=== PATIENT | female | born 1985 | race Caucasian/White ===

== ENCOUNTER 2018-11-25 16:07 | Emergency (ER) | payer MEDICAID ==
--- NOTE | 2018-11-25 16:35 | EDM.PDOC ---
ED HPI GENERAL MEDICAL PROBLEM - General Chief Complaint: Behavioral/Psych Stated Complaint: MEDICAL CLEARING Time Seen by Provider: 11/25/18 16:20 Source of Information: Reports: Patient History Limitations: Reports: No Limitations - History of Present Illness INITIAL COMMENTS - FREE TEXT/NARRATIVE: Tali comes to [facility] ED for medical clearance to enter [facility] for behavioral managment. She has had recent issues with depression, mood swings, anxiety, restlessness, insomnia, and goal directed behavior. There is a PMH of anxiety disorder and probable bpad. She is on mood stablilzer, but medication compliance is unknown. She denies suicidal or homicidal ideation. - Related Data Allergies Allergy/AdvReac Type Severity Reaction Status Date / Time No Known Allergies Allergy Verified 02/07/16 20:27 Home Meds: Home Meds Meclizine HCl 25 mg PO DAILY 02/07/16 [History] Past Medical History - Past Health History Medical/Surgical History: Denies Medical/Surgical History Musculoskeletal History: Reports: Other (See Below) Other Musculoskeletal History: recent ankle injury Neurological History: Reports: Migraines, Vertigo - Past Surgical History HEENT Surgical History: Reports: Oral Surgery, Tonsillectomy Social & Family History - Caffeine Use Caffeine Use: Reports: Coffee, Soda ED ROS GENERAL - Review of Systems Review Of Systems: See Below Constitutional: Reports: Malaise, Decreased Appetite HEENT: Reports: No Symptoms Respiratory: Reports: No Symptoms Cardiovascular: Reports: No Symptoms Endocrine: Reports: No Symptoms GI/Abdominal: Reports: No Symptoms : Reports: No Symptoms Musculoskeletal: Reports: Back Pain Skin: Reports: No Symptoms Neurological: Reports: No Symptoms Psychiatric: Reports: Agitation, Anxiety, Depression, Mood Lability Hematologic/Lymphatic: Reports: No Symptoms Immunologic: Reports: No Symptoms ED EXAM, GENERAL - Physical Exam Exam: See Below Exam Limited By: No Limitations General Appearance: Alert, WD/WN, No Apparent Distress, Obese Eye Exam: Bilateral Eye: EOMI, Normal Inspection, PERRL Ears: Normal External Exam Nose: Normal Inspection Throat/Mouth: Normal Inspection, Normal Oropharynx, Normal Voice Head: Normocephalic Neck: Normal Inspection, Supple Respiratory/Chest: Lungs Clear, Normal Breath Sounds, Chest Non-Tender Cardiovascular: Normal Peripheral Pulses, Regular Rate, Rhythm, No Murmur GI/Abdominal: Normal Bowel Sounds, Soft, Non-Tender, No Organomegaly, No Distention, No Mass (Female) Exam: Deferred Rectal (Female) Exam: Deferred Back Exam: Normal Inspection, Paraspinal Tenderness Extremities: Normal Inspection Neurological: Alert, Oriented, CN II-XII Intact, Normal Cognition, Normal Gait, No Motor/Sensory Deficits Psychiatric: Depressed Mood Skin Exam: Warm, Dry, Intact, Normal Color, Other (acne) Lymphatic: No Adenopathy Course - Vital Signs Text/Narrative:: Following assessment, screening labwork was obtained, and all are baseline. She is medically cleared for treatment. - Orders/Labs/Meds Labs: Laboratory Tests 11/25/18 11/25/18 11/25/18 Range/Units 16:35 16:35 16:40 WBC 11.2 (4.5-12.0) X10-3/uL RBC 5.07 (3.23-5.20) x10(6)uL Hgb 14.5 (11.5-15.5) g/dL Hct 42.3 (30.0-51.3) % MCV 83.5 (80-96) fL MCH 28.5 (27.7-33.6) pg MCHC 34.2 (32.2-35.4) g/dL RDW 14.0 (11.5-15.5) % Plt Count 262 (125-369) X10(3)uL MPV 9.5 (7.4-10.4) fL Neut % (Auto) 67.0 (46-82) % Lymph % (Auto) 23.9 (13-37) % Young % (Auto) 4.6 (4-12) % Eos % (Auto) 4 (1.0-5.0) % Baso % (Auto) 1 (0-2) % Neut # (Auto) 7.5 (1.6-8.3) # Lymph # (Auto) 2.7 (0.6-5.0) # Young # (Auto) 0.5 (0.0-1.3) # Eos # (Auto) 0.4 (0.0-0.8) # Baso # (Auto) 0.1 (0.0-0.2) # TSH, Ultra Sensitive (0.36-3.74) IU/mL Urine HCG, Qual Negative (NEGATIVE) Salicylates (<2.8) mg/dL Urine Opiates Screen Negative (NEGATIVE) Ur Oxycodone Screen Negative (NEGATIVE) Ur Propoxyphene Screen Negative (NEGATIVE) Acetaminophen (<2) ug/mL Ur Barbituates Screen Negative (NEGATIVE) Ur Tricyclics Screen Positive H (NEGATIVE) Ur Phencyclidine Scrn Negative (NEGATIVE) Ur Amphetamine Screen Negative (NEGATIVE) Urine MDMA Screen Negative (NEGATIVE) U Benzodiazepines Scrn Negative (NEGATIVE) U Cocaine Metab Screen Negative (NEGATIVE) U Marijuana (THC) Screen Negative (NEGATIVE) Ethyl Alcohol (<0.03) % 11/25/18 11/25/18 Range/Units 16:40 16:40 WBC (4.5-12.0) X10-3/uL RBC (3.23-5.20) x10(6)uL Hgb (11.5-15.5) g/dL Hct (30.0-51.3) % MCV (80-96) fL MCH (27.7-33.6) pg MCHC (32.2-35.4) g/dL RDW (11.5-15.5) % Plt Count (125-369) X10(3)uL MPV (7.4-10.4) fL Neut % (Auto) (46-82) % Lymph % (Auto) (13-37) % Young % (Auto) (4-12) % Eos % (Auto) (1.0-5.0) % Baso % (Auto) (0-2) % Neut # (Auto) (1.6-8.3) # Lymph # (Auto) (0.6-5.0) # Young # (Auto) (0.0-1.3) # Eos # (Auto) (0.0-0.8) # Baso # (Auto) (0.0-0.2) # TSH, Ultra Sensitive 3.23 (0.36-3.74) IU/mL Urine HCG, Qual (NEGATIVE) Salicylates 4.7 (<2.8) mg/dL Urine Opiates Screen (NEGATIVE) Ur Oxycodone Screen (NEGATIVE) Ur Propoxyphene Screen (NEGATIVE) Acetaminophen < 2 L (<2) ug/mL Ur Barbituates Screen (NEGATIVE) Ur Tricyclics Screen (NEGATIVE) Ur Phencyclidine Scrn (NEGATIVE) Ur Amphetamine Screen (NEGATIVE) Urine MDMA Screen (NEGATIVE) U Benzodiazepines Scrn (NEGATIVE) U Cocaine Metab Screen (NEGATIVE) U Marijuana (THC) Screen (NEGATIVE) Ethyl Alcohol < 0.03 (<0.03) % Departure - Departure Time of Disposition: 17:28 Disposition: DC/Tfer to Psych Hosp/Unit 65 Condition: Good Clinical Impression: Depressive disorder - Discharge Information *PRESCRIPTION DRUG MONITORING PROGRAM REVIEWED*: Not Applicable *COPY OF PRESCRIPTION DRUG MONITORING REPORT IN PATIENT BEENA: Not Applicable Referrals: Bianca Núñez MD [Primary Care Provider] - Forms: ED Department Discharge - Problem List & Annotations (1) Depressive disorder SNOMED Code(s): 23755723 Code(s): F32.9 - MAJOR DEPRESSIVE DISORDER, SINGLE EPISODE, UNSPECIFIED Status: Acute Current Visit: Yes Annotation/Comment:: Medically cleared. - Problem List Review Problem List Initiated/Reviewed/Updated: Yes - Assessment/Plan Plan: Medically cleared.
[2018-11-25 17:10] LABS: ACETAMINOPHEN < 2 ug/mL (<2)
[2018-11-25 20:29] VITALS: BP 132/70; PULSE 80
== END 2018-11-25 18:59 ==
LOC: FB.ED 16:07
DX: F32.9 Major depressive disorder, single episode, unspecified (principal); Z79.899 Other long term (current) drug therapy
CPT/HCPCS: 36415; 80305; 81025; 84443; 85025; 99283; G0480

== ENCOUNTER 2019-03-25 10:04 | Emergency (ER) | payer MEDICAID ==
--- NOTE | 2019-03-25 10:53 | EDM.PDOC ---
ED HPI GENERAL MEDICAL PROBLEM - General Chief Complaint: Upper Extremity Injury/Pain Stated Complaint: HURT LEFT ARM Time Seen by Provider: 03/25/19 10:10 Source of Information: Reports: Patient History Limitations: Reports: No Limitations - History of Present Illness INITIAL COMMENTS - FREE TEXT/NARRATIVE: Patient presented to the ED because of left arm pain. She tripped and fell and landed on her left upper arm.She c/p 3/10 pain. L forearm Pain Score (Numeric/FACES): 5 - Related Data Allergies Allergy/AdvReac Type Severity Reaction Status Date / Time No Known Allergies Allergy Verified 03/25/19 10:17 Home Meds: Home Meds hydrOXYzine HCl [hydrOXYzine] 25 mg Q4H PRN 03/25/19 [History] Past Medical History - Past Health History Medical/Surgical History: Denies Medical/Surgical History Musculoskeletal History: Reports: Other (See Below) Other Musculoskeletal History: recent ankle injury Neurological History: Reports: Concussion, Vertigo Psychiatric History: Reports: ADHD, Addiction, Anxiety, Depression, Panic Attack , Psych Hospitalization(s), Suicide Attempt Other Psychiatric History: hx ETOH abuse, Endocrine/Metabolic History: Reports: Obesity/BMI 30+ - Infectious Disease History Infectious Disease History: Reports: Chicken Pox - Past Surgical History HEENT Surgical History: Reports: Oral Surgery, Tonsillectomy Social & Family History - Family History Family Medical History: Noncontributory - Tobacco Use Smoking Status *Q: Current Every Day Smoker Years of Tobacco use: 14 Packs/Tins Daily: 0.5 - Caffeine Use Caffeine Use: Reports: Coffee, Soda, Tea - Recreational Drug Use Recreational Drug Use: Yes Recreational Drug Type: Reports: Marijuana/Hashish, Methamphetamine Recreational Drug Use Frequency: Rarely Review of Systems - Review of Systems Review Of Systems: See Below Constitutional: Reports: No Symptoms Ears: Reports: No Symptoms Nose: Reports: No Symptoms Mouth/Throat: Reports: No Symptoms Respiratory: Reports: No Symptoms Cardiovascular: Reports: No Symptoms Genitourinary: Reports: No Symptoms Musculoskeletal: Reports: Other (tenderness LUE) Skin: Reports: No Symptoms Neurological: Reports: No Symptoms Psychiatric: Reports: No Symptoms ED EXAM, GENERAL - Physical Exam Exam: See Below Exam Limited By: No Limitations General Appearance: Alert, No Apparent Distress Ears: Normal External Exam, Normal Canal, Hearing Grossly Normal Nose: Normal Inspection, Normal Mucosa, No Blood Throat/Mouth: Normal Inspection, Normal Lips, Normal Teeth Head: Atraumatic, Normocephalic Neck: Normal Inspection, Supple, Non-Tender, Full Range of Motion Respiratory/Chest: No Respiratory Distress, Lungs Clear, Normal Breath Sounds Cardiovascular: Normal Peripheral Pulses, Regular Rate, Rhythm, No Edema, No Gallop, No JVD, No Murmur GI/Abdominal: Normal Bowel Sounds, Soft, Non-Tender, No Organomegaly, No Distention, No Abnormal Bruit Extremities: Normal Inspection, Normal Range of Motion, No Pedal Edema, Other ( tenderness left upper arm) Neurological: Alert, Oriented, CN II-XII Intact, Normal Cognition, Normal Gait, Normal Reflexes, No Motor/Sensory Deficits Course - Vital Signs Text/Narrative:: xray left forearm-neg ibuprofen 800 mg po x1 tylenol 1000 mg po x1 Last Recorded V/S: Last Vital Signs Temp 36.2 C 03/25/19 10:08 Pulse 88 03/25/19 11:07 Resp 18 03/25/19 11:07 BP 147/96 H 03/25/19 11:07 Pulse Ox 100 03/25/19 11:07 - Orders/Labs/Meds Orders: Active Orders 24 hr Category Date Time Status Forearm 2V Lt [CR] Stat Exams 03/25/19 10:33 Taken Meds: Medications Discontinued Medications Generic Name Dose Route Start Last Admin Trade Name Pradip PRN Reason Stop Dose Admin Acetaminophen 1,000 mg 03/25/19 10:57 03/25/19 11:02 Tylenol Extra Strength PO 03/25/19 10:58 1,000 mg ONETIME ONE Administration Ibuprofen 800 mg 03/25/19 10:57 03/25/19 11:02 Motrin PO 03/25/19 10:58 800 mg ONETIME ONE Administration Departure - Departure Time of Disposition: 10:50 Disposition: Home, Self-Care 01 Condition: Good Clinical Impression: Contusion, arm, upper - Discharge Information Instructions: Contusion, [id number] Referrals: Guille Silvestre MD [Primary Care Provider] - Forms: ED Department Discharge Additional Instructions: please read discharge instructions on contusion apply ice elevate you may take ibuprofen 800 mg with tylenol 1000 every 8 hours as needed for pain follow up as needed - My Orders Last 24 Hours: My Active Orders 03/25/19 10:33 Forearm 2V Lt [CR] Stat - Assessment/Plan Last 24 Hours: My Active Orders 03/25/19 10:33 Forearm 2V Lt [CR] Stat
[2019-03-25] MEDS ORDERED: Acetaminophen 500 MG Tab PO ONE (10:57)
[2019-03-25] MEDS ORDERED: Ibuprofen 800 MG Tab PO ONE (10:57)
[2019-03-25 11:13] VITALS: BP 147/96; PULSE 88
== END 2019-03-25 11:08 | disposition home or self-care (01) ==
LOC: FB.ED 10:04
DX: S40.022A Contusion of left upper arm, initial encounter (principal); F32.9 Major depressive disorder, single episode, unspecified; F41.0 Panic disorder [episodic paroxysmal anxiety]; E66.9 Obesity, unspecified; Z68.41 Body mass index [BMI] 40.0-44.9, adult; F17.210 Nicotine dependence, cigarettes, uncomplicated; W01.0XXA Fall on same level from slipping, tripping and stumbling without subsequent striking against object, initial encounter
CPT/HCPCS: 73090; 99283; A9270